=== PATIENT | male | born 1990 | race African-American/Black ===

== ENCOUNTER 2018-12-31 12:48 | Outpatient (CLI) | payer OTHER ==
[2018-12-31] MEDS ORDERED: IOHEXOL 300mgI/mL 100 ML VIAL IVP ONE (12:54)
--- NOTE | 2018-12-31 14:09 | Diagnostic Imaging Report ---
CT abdomen and pelvis with intravenous contrast Indication: Severe Abdominal pain Comparison: None, Technique: Axial images were obtained from the lung bases to the bilateral proximal femurs without IV contrast. Coronal reconstructions were made. total DLP: 602, CTDI12.1 FINDINGS: Hypoventilatory and atelectatic changes of the lung bases are noted. No evidence of focal hepatic, splenic, pancreatic, or adrenal glands. No evidence of hydronephrosis of focal lesions. Urinary bladder is underdistended, limiting evaluation. No evidence of appendicitis. Fluid-filled loops of small bowel are noted. Diverticulosis is noted. Minimal large bowel wall thickening cannot be excluded. No free air. The osseous structures demonstrate no acute abnormalities. IMPRESSION: No evidence of acute appendicitis. Diverticulosis. Minimal bowel wall thickening of the large bowel loops cannot be excluded. As such, inflammatory process cannot be excluded. No free fluid or free air. Few fluid-filled loops of small bowel. Underlying enteritis cannot be excluded.
== END 2018-12-31 13:30 ==
LOC: RAD 12:48
PROVIDERS: ATTEND Internal Medicine
DX: K57.10 Diverticulosis of small intestine without perforation or abscess without bleeding (principal); J98.4 Other disorders of lung
CPT/HCPCS: Q9967